=== PATIENT | female | born 1940 | race Caucasian/White ===

== ENCOUNTER → 2017-03-27 | Outpatient (CLI) | payer OTHER, MEDICARE ==
[~2017-03-27] MED LIST: ASPCH81 PO; LOVA20TA4 PO; MULT-506 PO; citracal PO
--- NOTE | 2017-03-27 12:19 | MAMMOGRAPHY REPORT ---
BILATERAL DIGITAL SCREENING MAMMOGRAM WITH CAD: 03/27/2017 CLINICAL HISTORY: Routine screening. Patient has no complaints. TECHNIQUE: Bilateral CC and MLO views were obtained. Current study was also evaluated with a Compute r Aided Detection (CAD) system. COMPARISON: Comparison is made to exams dated: 03/25/2016 mammogram, 04/11/2015 mammogram, 04/10/2014 casey mogram, 04/04/2013 mammogram, 03/31/2012 mammogram, and 03/25/2011 mammogram - [facility]. BREAST COMPOSITION: There are scattered areas of fibroglandular density in both breasts. FINDINGS: A linear scar marker overlies the lower outer quadrant of the left breast. There is a grou ping of punctate monomorphic microcalcifications in the 12:00 middle one third of the left breast esau t is unchanged on all available prior mammograms dating back to at least 03/07/2008, therefore likely benign. No new suspicious mass, architectural distortion or cluster of microcalcifications is seen. IMPRESSION: ACR BI-RADS CATEGORY 1: NEGATIVE There is no mammographic evidence of malignancy. A 1 year screening mammogram is recommended. The pa tient will receive written notification of the results. Approximately 10% of breast cancers are not detected with mammography. A negative mammographic report should not delay biopsy if a clinically suggestive mass is present. Lorena Maldonado M.D. ay/:03/27/2017 09:54:34 Foreign Language Professor: Marianela WOODRUFF(R)(M), [facility] letter sent: Normal 1/2 BI-RADS Code: ACR BI-RADS Category 1: Negative
== END | disposition home or self-care (01) ==
LOC: C.MAMM 08:38
PROVIDERS: ATTEND Physician Assistant
DX: Z12.31 Encounter for screening mammogram for malignant neoplasm of breast (principal)

== ENCOUNTER → 2017-06-19 | Outpatient (CLI) | payer OTHER, MEDICARE ==
[2017-06-19 08:22] LABS: ALT/SGPT 26 U/L (12-78); BLOOD UREA NITROGEN 17 mg/dl (7-18); BUN/CREATININE RATIO 18.5 (10-20); CALCIUM 8.7 mg/dl (8.5-10.1); CARBON DIOXIDE 30 mmol/L (21-32); CHLORIDE 105 mmol/L (98-107); CHOLESTEROL 237 mg/dl (0-200); CREATININE 0.89 mg/dl (0.60-1.20); GLUCOSE 85 mg/dl (70-99); POTASSIUM 3.6 mmol/L (3.5-5.1); SODIUM 141 mmol/L (136-145); TRIGLYCERIDES 87 mg/dl (0-150); VERY LOW DENSITY LIPOPROT CALC 17 mg/dl
[2017-06-19 08:33] LABS: ALKALINE PHOSPHATASE 73 U/L (45-117); AST/SGOT 27 U/L (15-37); CHOLESTEROL/HDL RATIO 2.8; HDL CHOLESTEROL 85 mg/dl; LDL CHOLESTEROL CALCULATED 135 mg/dl
== END | disposition home or self-care (01) ==
LOC: C.LABFOXMH 07:54
PROVIDERS: ATTEND Internal Medicine
DX: E78.00 Pure hypercholesterolemia, unspecified (principal)

== ENCOUNTER → 2017-08-18 | Outpatient (CLI) | payer OTHER, MEDICARE ==
[2017-08-18 08:32] LABS: MEAN CELL VOLUME 92.8 fL (80-100); MEAN CORPUSCULAR HEMOGLOBIN 30.9 pg (25-34); MEAN CORPUSCULAR HGB CONC 33.3 g/dl (32-36); PLATELET COUNT 186 K/uL (130-400); RED BLOOD COUNT 4.85 M/uL (4.2-5.4); WHITE BLOOD COUNT 5.57 K/uL (4.8-10.8)
[2017-08-18 08:37] LABS: ALT/SGPT 30 U/L (12-78); AST/SGOT 27 U/L (15-37); BLOOD UREA NITROGEN 22 mg/dl (7-18); BUN/CREATININE RATIO 25.3 (10-20); CALCIUM 9.4 mg/dl (8.5-10.1); CARBON DIOXIDE 27 mmol/L (21-32); CHLORIDE 105 mmol/L (98-107); CREATININE 0.87 mg/dl (0.60-1.20); GLUCOSE 87 mg/dl (70-99); POTASSIUM 4.1 mmol/L (3.5-5.1); SODIUM 140 mmol/L (136-145)
[2017-08-18 08:47] LABS: ALKALINE PHOSPHATASE 69 U/L (45-117)
== END ==
LOC: C.LABFOXMH 07:42
PROVIDERS: ATTEND Internal Medicine
DX: M81.0 Age-related osteoporosis without current pathological fracture (principal)

== ENCOUNTER → 2017-09-22 | Outpatient (CLI) | payer OTHER, MEDICARE ==
--- NOTE | 2017-09-22 10:09 | DIAGNOSTIC IMAGING REPORT ---
LEFT WRIST 4 VIEWS HISTORY: Left wrist pain. Fall. R/O FRACTURE COMPARISON: None. FINDINGS: Nondisplaced transverse fracture through the distal radius. This does not clearly demonstrate intra-articular extension. The distal ulna and carpal bones are intact. Diffuse soft tissue swelling. No radiopaque foreign bodies. IMPRESSION: Nodular transverse fracture through the distal left radius. Electronically signed by: Apolinar Ponce M.D. 09/22/2017 10:08 AM Dictated Date/Time: 09/22/2017 10:05 AM
== END | disposition home or self-care (01) ==
LOC: C.RAD 09:28
PROVIDERS: ATTEND Internal Medicine Hospice and Palliative Medicine
DX: S52.502A Unspecified fracture of the lower end of left radius, initial encounter for closed fracture (principal); W19.XXXA Unspecified fall, initial encounter

== ENCOUNTER → 2018-04-01 | Outpatient (CLI) | payer OTHER, MEDICARE ==
--- NOTE | 2018-04-01 16:01 | MAMMOGRAPHY REPORT ---
BILATERAL DIGITAL SCREENING MAMMOGRAM TOMOSYNTHESIS WITH CAD: 04/01/2018 CLINICAL HISTORY: Routine screening. The patient has no current complaints. TECHNIQUE: The study was acquired using full field digital technology and interpreted from soft copy. Breast tomosynthesis in addition to standard 2D mammography was performed. Current study was also ev aluated with a Computer Aided Detection (CAD) system. COMPARISON: Comparison is made to exams dated: 03/27/2017 mammogram, 03/25/2016 mammogram, 04/11/2015 ma mmogram, 04/10/2014 mammogram, 04/04/2013 mammogram, and 03/31/2012 mammogram - [facility]. BREAST COMPOSITION: There are scattered areas of fibroglandular density in both breasts. FINDINGS: No suspicious masses, calcifications, or areas of architectural distortion are noted in either breast . There has been no significant interval change compared to prior exams. Grouped punctate benign-jessica earing calcifications in the left 12:00 breast are stable. A linear scar marker denotes a scar in th e left breast. IMPRESSION: ACR BI-RADS CATEGORY 2: BENIGN There is no mammographic evidence of malignancy. A 1 year screening mammogram is recommended.( [id number]) The patient will receive written notification of the results. Some breast cancers are not detected with mammography. A negative mammographic report should not saadia y biopsy if a clinically suggestive mass is present. Kavya Squires M.D. ah/:04/01/2018 09:10:00 Machine Cloth Trimmer: RT Mikael(Kelli)(M), [facility] letter sent: Normal 1/2 BI-RADS Code: ACR BI-RADS Category 2: Benign
== END | disposition home or self-care (01) ==
LOC: C.MAMM 08:28
PROVIDERS: ATTEND Physician Assistant
DX: Z12.31 Encounter for screening mammogram for malignant neoplasm of breast (principal)